=== PATIENT | female | born 1995 | race Caucasian/White ===

== ENCOUNTER 2021-02-07 21:01 | Emergency (ER) | payer SELFPAY ==
[2021-02-07 21:23] VITALS: BMI 24.5
[2021-02-08 00:32] LABS: BASO % 0.8 % (0-2.0); EOS % 4.7 % (0-4.5); HEMATOCRIT 40.2 % (32.4-45.2); HEMOGLOBIN 13.4 GM/dL (10.7-15.3); LYMPH % 28.8 % (8-40); MCH 30.9 pg (25.7-33.7); MCHC 33.3 g/dl (32.0-36.0); MEAN CELL VOLUME 92.8 fl (80-96); MEAN PLT VOLUME 9.1 fl (7.5-11.1); MONO % 8.9 % (3.8-10.2); NEUT % 56.8 % (42.8-82.8); PLATELET COUNT 244 10^3/uL (134-434); RBC 4.33 M/mm3 (3.60-5.2); RDW 12.9 % (11.6-15.6); WHITE BLOOD COUNT 13.2 K/mm3 (4.0-10.0)
[2021-02-08 00:37] LABS: EPI CELLS 27 /uL (0-25.1); HYALINE CASTS 5 /uL (0-3.1); URINE APPEARANCE CLEAR; URINE BACTERIA 588 /uL (0-1359); URINE BILIRUBIN NEGATIVE (NEGATIVE); URINE COLOR YELLOW; URINE GLUCOSE (UA) NEGATIVE (NEGATIVE); URINE KETONE TRACE (NEGATIVE); URINE LEUK ESTERASE TRACE (NEGATIVE); URINE NITRITE NEGATIVE (NEGATIVE); URINE PROTEIN NEGATIVE (NEGATIVE); URINE RBC 20 /uL (0-23.9); URINE WBC 15 /uL (0-25.8)
[2021-02-08 00:54] LABS: ALBUMIN 4.2 g/dl (3.4-5.0); BLOOD UREA NITROGEN 9.1 mg/dL (7-18); CALCIUM 9.6 mg/dL (8.5-10.1)
[2021-02-08 00:57] LABS: CREATININE 0.6 mg/dL (0.55-1.3)
[2021-02-08 00:59] LABS: BILIRUBIN,TOTAL 0.2 mg/dL (0.2-1); TOT PROT 8.3 g/dl (6.4-8.2)
[2021-02-08 02:21] VITALS: BP 110/63; PULSE 75; TEMP 98.5
== END 2021-02-08 03:21 | disposition home or self-care (01) ==
LOC: JER 21:01
DX: O23.41 Unspecified infection of urinary tract in pregnancy, first trimester (principal); Z3A.01 Less than 8 weeks gestation of pregnancy
CPT/HCPCS: 36415; 76817-TC; 80053; 81003; 84702; 85025; 87086; 99284-25